=== PATIENT | male | born 1940 | race Caucasian/White ===

== ENCOUNTER 2016-09-09 23:22 | Inpatient (IN) | payer BC, MEDICARE ==
[~2016-09-09] VITALS: Ht 172.7 cm; Wt 93.8 kg
[2016-09-10] MEDS ORDERED: ACETAMINOPHEN 325 MG TAB PO PRN (01:50)
[2016-09-10] MEDS ORDERED: BISACODYL EC 5 MG TAB PO PRN (01:50)
[2016-09-10] MEDS ORDERED: MAG HYDROX 30 ML UDC PO PRN (01:50)
[2016-09-10] MEDS ORDERED: ALU/MAG/SIM 30 ML UDC PO PRN (01:50)
[2016-09-10] MEDS ORDERED: SALINE FLUSH 10 ML FLUSH PRN (01:50)
[2016-09-10] MEDS ORDERED: BISACODYL 10 MG SUPP RECTAL PRN (01:50)
[2016-09-10] MEDS ORDERED: SODIUM CHLORIDE 0.9% 1,000 ML IV SCH ×2 (02:45→15:30)
[2016-09-10] MEDS ORDERED: NEB-ALBUTEROL 2.5 MG/3 ML INH ONE (03:46)
[2016-09-10] MEDS ORDERED: NEB-ATROVENT INH ONE (03:46)
[2016-09-10 03:51] VITALS: Ht 172.7 cm; Wt 93.8 kg
[2016-09-10 03:52] VITALS: BP_SYST 128; BP_SYST 130; RESP 18; TEMP 96.4
[2016-09-10 04:18] VITALS: RESP 16
[2016-09-10] MEDS: SODIUM CHLORIDE 0.9% FLUSH BAG 500 ML IV SCH (05:05)
[2016-09-10] MEDS: NEB-ATROVENT INH SCH ×5 (06:41→22:28)
[2016-09-10] MEDS: NEB-ALBUTEROL 2.5 MG/3 ML INH SCH ×5 (06:41→22:28)
[2016-09-10 07:35] VITALS: BP_SYST 138; RESP 20; TEMP 97.5
[2016-09-10] MEDS: LEVOFLOXACIN 750 MG/150 ML 150 ML IV SCH (08:14)
[2016-09-10] MEDS: SALINE FLUSH 10 ML FLUSH SCH ×2 (08:16→20:10)
[2016-09-10] MEDS: ENOXAPARIN 40 MG/0.4 ML SYR SUBQ SCH (08:17)
[2016-09-10] MEDS: FAMOTIDINE 20 MG TAB PO SCH ×2 (08:17→20:09)
[2016-09-10 13:00] VITALS: BP_SYST 124; RESP 20; TEMP 97
[2016-09-10] MEDS ORDERED: LOPERAMIDE 2 MG CAPSULE PO PRN (15:30)
[2016-09-10] MEDS: BENZONATATE 100 MG CAP PO SCH ×2 (16:31→20:09)
[2016-09-10 16:51] VITALS: BP_SYST 125; RESP 20; TEMP 97.4
[2016-09-10 20:03] VITALS: BP_SYST 138; RESP 18; TEMP 97.9
[2016-09-11 00:14] VITALS: BP_SYST 110; RESP 18; TEMP 98.6
[2016-09-11] MEDS: NEB-ALBUTEROL 2.5 MG/3 ML INH SCH ×4 (02:58→14:47)
[2016-09-11] MEDS: NEB-ATROVENT INH SCH ×4 (02:58→14:47)
[2016-09-11] MEDS: SODIUM CHLORIDE 0.9% FLUSH BAG 500 ML IV SCH (04:37)
[2016-09-11 04:53] VITALS: BP_SYST 142; RESP 16; TEMP 97.7
[2016-09-11 07:36] VITALS: BP_SYST 140; RESP 20; TEMP 97.6
[2016-09-11] MEDS: SALINE FLUSH 10 ML FLUSH SCH (07:41)
[2016-09-11] MEDS: ENOXAPARIN 40 MG/0.4 ML SYR SUBQ SCH (07:42)
[2016-09-11] MEDS: FAMOTIDINE 20 MG TAB PO SCH (07:42)
[2016-09-11] MEDS: BENZONATATE 100 MG CAP PO SCH (07:42)
[2016-09-11] MEDS: LEVOFLOXACIN 750 MG/150 ML 150 ML IV SCH (07:43)
[2016-09-11 11:37] VITALS: BP_SYST 138; RESP 20; TEMP 98
[2016-09-11 15:05] VITALS: BP_SYST 138; RESP 20; TEMP 98
== END 2016-09-11 15:27 | disposition home or self-care (01) | DRG 191 ==
LOC: ENRESERVDT → ENRESERV → ENRESERVTM → ER 23:22 → EMR 09-10 01:46 → ENPENDDIS 09-10 01:46 → 4THE 09-10 03:02
PROVIDERS: ADMIT Hospitalist; ATTEND Hospitalist
DX: J44.0 Chronic obstructive pulmonary disease with (acute) lower respiratory infection (principal); R04.2 Hemoptysis; E11.9 Type 2 diabetes mellitus without complications; R55 Syncope and collapse; I10 Essential (primary) hypertension; J20.9 Acute bronchitis, unspecified; R19.7 Diarrhea, unspecified; N40.0 Benign prostatic hyperplasia without lower urinary tract symptoms; G47.33 Obstructive sleep apnea (adult) (pediatric); I25.10 Atherosclerotic heart disease of native coronary artery without angina pectoris; Z95.1 Presence of aortocoronary bypass graft; Z95.5 Presence of coronary angioplasty implant and graft; Z79.82 Long term (current) use of aspirin; Z79.01 Long term (current) use of anticoagulants
CPT/HCPCS: 36415; 70450; 71010; 71250; 80048; 80053; 81003; 82330; 82553; 82947; 83630; 83735; 83880; 84484; 85025; 85379; 87045; 87046; 87493; 93005; 93306; 93880; 94640; 94799; 99223; 99233; 99238